=== PATIENT | female | born 1940 | race Caucasian/White ===

== ENCOUNTER 2023-11-09 12:45 | Observation (INO) | payer MEDICARE ==
[~2023-11-09] VITALS: Ht 170.2 cm; Wt 53.3 kg
[2023-11-09] MEDS ORDERED: SODIUM CHLORIDE 0.9% 1000ML 1,000 ML IV STA ×2 (13:05→13:15)
[2023-11-09] MEDS ORDERED: IOPAMIDOL 370 MG/ML 100 ML INFUS..BTL INJ ONE (13:17)
[2023-11-09 15:15] LABS: BASOPHILS # (AUTO) 0.1 (0.0-0.1); EOSINOPHILS # (AUTO) 0.3 (0.0-0.4); EOSINOPHILS % 4.2 % (0.0-6.0); HEMATOCRIT 44.3 % (34.2-44.1); HEMOGLOBIN 13.5 g/dL (12.0-16.0); LYMPHOCYTES # (AUTO) 1.8 (1.0-3.2); LYMPHOCYTES % 28.3 % (18.0-39.1); MEAN CORPUSCULAR HGB CONC 30.5 g/dL (31-35); MONOCYTES # (AUTO) 0.3 (0.2-0.8); MONOCYTES % 4.6 % (4.4-11.3); NEUTROPHILS # (AUTO) 3.9 (2.1-6.9); NEUTROPHILS % 61.7 % (38.7-80.0); PLATELET COUNT 159 x10e3/uL (140-360); RED BLOOD COUNT 4.22 x10e6/uL (3.6-5.1); RED CELL DISTRIBUTION WIDTH 14.1 % (11.7-14.4); WHITE BLOOD COUNT 6.25 x10e3/uL (4.8-10.8)
[2023-11-09 15:32] LABS: ALBUMIN 3.4 g/dL (3.5-5.0); ANION GAP 13.7 mmol/L (8-16); BILIRUBIN,TOTAL 0.5 mg/dL (0.2-1.2); CALCIUM 8.7 mg/dL (8.4-10.2); CREATININE, SERUM 0.77 mg/dL (0.57-1.11); POTASSIUM 3.7 mmol/L (3.5-5.1); TOTAL PROTEIN 6.7 g/dL (6.5-8.1)
[2023-11-09 15:40] LABS: TROPONIN I 0.009 ng/mL (0-0.300)
[2023-11-09] MEDS ORDERED: Morphine 4mg INJECTION 4 MG/ML INJ IV PRN (16:00)
[2023-11-09] MEDS ORDERED: ONDANSETRON HCL INJ 2MG/ML 2ML 2 MG/ML VIAL IV PRN (16:00)
[2023-11-09 19:42] VITALS: PULSE 72; RESP 18; O2SAT 98
[2023-11-09 21:00] VITALS: BP 108/55; PULSE 52; RESP 20; TEMP 97.7; O2SAT 95
[2023-11-09 21:27] VITALS: BP 113/67; PULSE 50; RESP 18; TEMP 97.1; O2SAT 100
[2023-11-09 21:30] VITALS: BP 113/67; PULSE 50; RESP 18; TEMP 97.1; O2SAT 100
[2023-11-09 21:32] VITALS: BP 113/67; PULSE 50; RESP 18; TEMP 97.1; O2SAT 100
[2023-11-09] MEDS: AMOXICILLIN/CLAVULANATE K 875 MG TAB PO SCH (22:58)
[2023-11-09] MEDS: AZITHROMYCIN 250 MG TAB PO SCH (22:59)
[2023-11-10] VITALS: BP 89/54; PULSE 81; RESP 20; TEMP 97.4; O2SAT 96
[2023-11-10 05:48] VITALS: BP 118/79; PULSE 82; RESP 21; TEMP 98.8; O2SAT 96
[2023-11-10 06:20] LABS: BASOPHILS # (AUTO) 0.1 (0.0-0.1); BASOPHILS % 1.2 % (0.0-1.0); EOSINOPHILS # (AUTO) 0.3 (0.0-0.4); EOSINOPHILS % 6.7 % (0.0-6.0); HEMATOCRIT 41.7 % (34.2-44.1); LYMPHOCYTES # (AUTO) 1.7 (1.0-3.2); LYMPHOCYTES % 33.6 % (18.0-39.1); MEAN CORPUSCULAR HEMOGLOBIN 31.6 pg (28-32); MEAN CORPUSCULAR HGB CONC 31.2 g/dL (31-35); MEAN CORPUSCULAR VOLUME 101.5 fL (81-99); MONOCYTES # (AUTO) 0.3 (0.2-0.8); MONOCYTES % 5.9 % (4.4-11.3); NEUTROPHILS # (AUTO) 2.7 (2.1-6.9); NEUTROPHILS % 52.4 % (38.7-80.0); PLATELET COUNT 163 x10e3/uL (140-360); RED BLOOD COUNT 4.11 x10e6/uL (3.6-5.1); RED CELL DISTRIBUTION WIDTH 13.9 % (11.7-14.4); WHITE BLOOD COUNT 5.09 x10e3/uL (4.8-10.8)
[2023-11-10 06:56] LABS: ANION GAP 10.8 mmol/L (8-16); BILIRUBIN,TOTAL 0.5 mg/dL (0.2-1.2); CALCIUM 8.5 mg/dL (8.4-10.2); CREATININE, SERUM 0.74 mg/dL (0.57-1.11); POTASSIUM 4.8 mmol/L (3.5-5.1)
[2023-11-10] MEDS ORDERED: ASCORBIC ACID500 M2 PO (07:18)
[2023-11-10] MEDS ORDERED: ATROVENT HFA12.9 GM INH (07:18)
[2023-11-10] MEDS ORDERED: ATIVAN1 MG PO (07:18)
[2023-11-10] MEDS ORDERED: DOCUSATE SODIU100 MG PO (07:18)
[2023-11-10] MEDS ORDERED: MAGOX 400400 MG PO (07:18)
[2023-11-10] MEDS ORDERED: LEVSIN0.125 MG PO (07:18)
[2023-11-10] MEDS ORDERED: MULTI-VITAMIN1 EACH PO (07:18)
[2023-11-10] MEDS ORDERED: ZINC 50 MG PO (07:18)
[2023-11-10] MEDS ORDERED: ASPIRIN325 MG PO (07:18)
[2023-11-10] MEDS ORDERED: PANTOPRAZOLE SO40 MG PO (07:18)
[2023-11-10] MEDS ORDERED: MIRTAZAPINE7.5 MG PO (07:18)
[2023-11-10] MEDS ORDERED: INCRUSE ELLI62.5 MCG INH (07:18)
[2023-11-10] MEDS ORDERED: BUDESONIDE0.5 MG/2 M NEB (07:18)
[2023-11-10] MEDS ORDERED: LEXAPRO10 MG PO (07:18)
[2023-11-10] MEDS ORDERED: METOPROLOL TART25 MG PO (07:18)
[2023-11-10] MEDS ORDERED: VITAMIN D32400 UNIT/ PO (07:18)
[2023-11-10] MEDS ORDERED: VITAMIN B-121000 MCG PO (07:18)
[2023-11-10] MEDS ORDERED: MELATONIN3 MG PO (07:18)
[2023-11-10] MEDS ORDERED: FOLIC ACID0.4 MG PO (07:18)
[2023-11-10] MEDS ORDERED: FEROSUL325 MG PO (07:18)
[2023-11-10] MEDS ORDERED: TYLENOL EXTRA500 MG PO (07:18)
[2023-11-10] MEDS ORDERED: ONDANSETRON ODT4 MG PO (07:18)
[2023-11-10 07:21] LABS: TROPONIN I 0.018 ng/mL (0-0.300)
[2023-11-10] MEDS ORDERED: PANTOPRAZOLE SOD 40 MG TABEC PO SCH (07:30)
[2023-11-10 07:45] VITALS: PULSE 75; RESP 18; O2SAT 92
[2023-11-10 07:52] VITALS: BP 118/79; PULSE 82; RESP 21; TEMP 98.8; O2SAT 96
[2023-11-10] MEDS: AMOXICILLIN/CLAVULANATE K 875 MG TAB PO SCH (08:18)
[2023-11-10] MEDS: METOPROLOL TARTRATE 25 MG TAB PO SCH ×2 (08:18→18:18)
[2023-11-10] MEDS: AZITHROMYCIN 250 MG TAB PO SCH (08:19)
[2023-11-10 08:42] VITALS: BP 97/68; PULSE 93; RESP 17; TEMP 97.6; O2SAT 96
[2023-11-10] MEDS ORDERED: ESCITALOPRAM OXALATE 10 MG TAB PO SCH (09:00)
[2023-11-10] MEDS ORDERED: FERROUS SULFATE 325 MG TAB PO SCH (09:00)
[2023-11-10] MEDS ORDERED: ASPIRIN 325 MG TAB PO SCH (09:00)
[2023-11-10] MEDS ORDERED: ACETAMINOPHEN 325 MG TAB PO PRN (09:30)
[2023-11-10 16:23] LABS: TROPONIN I 0.015 ng/mL (0-0.300)
[2023-11-10] MEDS ORDERED: ENOXAPARIN SOD INJ 40 MG/0.4 ML SYR SC SCH (17:00)
[2023-11-10 18:18] VITALS: BP 97/68; PULSE 98
[2023-11-10] MEDS ORDERED: MIRTAZAPINE 15 MG TAB PO SCH (21:00)
[2023-11-11] MEDS ORDERED: DOCUSATE SODIUM 100 MG CAP PO SCH (09:00)
[2023-11-11] MEDS ORDERED: SENNOSIDES 8.6 MG TAB PO SCH (09:00)
== END 2023-11-10 19:34 ==
LOC: ER 13:00 → ERHOLD 15:58 → MED/SURG2 20:22
PROVIDERS: ADMIT Internal Medicine; ATTEND Internal Medicine
DX: J18.9 Pneumonia, unspecified organism (principal); K56.7 Ileus, unspecified; I95.9 Hypotension, unspecified; I11.0 Hypertensive heart disease with heart failure; I50.9 Heart failure, unspecified; I25.10 Atherosclerotic heart disease of native coronary artery without angina pectoris; I48.0 Paroxysmal atrial fibrillation; I47.10 Supraventricular tachycardia, unspecified; F41.1 Generalized anxiety disorder; K21.9 Gastro-esophageal reflux disease without esophagitis; I73.9 Peripheral vascular disease, unspecified; J44.9 Chronic obstructive pulmonary disease, unspecified; K44.9 Diaphragmatic hernia without obstruction or gangrene; F33.41 Major depressive disorder, recurrent, in partial remission; L89.159 Pressure ulcer of sacral region, unspecified stage; R53.81 Other malaise; K57.30 Diverticulosis of large intestine without perforation or abscess without bleeding; Z11.52 Encounter for screening for COVID-19; Z85.3 Personal history of malignant neoplasm of breast; Z79.899 Other long term (current) drug therapy; Z79.82 Long term (current) use of aspirin
CPT/HCPCS: 36415 ×2; 74177; 80053 ×2; 82550 ×2; 82948; 83690; 84484 ×2; 85025 ×2; 92526; 92610; 93005; 94799 ×2; 99284; G0378 ×2; J1650; J2543; J7030; Q9967; S0164; U0002

== ENCOUNTER 2024-04-27 13:33 | Inpatient (IN) | payer MEDICARE, OTHER ==
[2024-04-27] VITALS (12 sets, daily range): BP systolic 78–116; BP diastolic 45–94; PULSE 64–118; RESP 17–38; TEMP 97.9–98.6; O2SAT 93–100
[~2024-04-27] VITALS: Ht 170.2 cm; Wt 52.8 kg
[~2024-04-27 13:33] MED LIST: ASCORBIC ACID500 M2 PO; ASPIRIN325 MG PO; ATIVAN1 MG PO; ATROVENT HFA12.9 GM INH; BUDESONIDE0.5 MG/2 M NEB; CEFDINIR300 MG PO; DOCUSATE SODIU100 MG PO; DOXYCYCLINE HY100 MG PO; FEROSUL325 MG PO; FOLIC ACID0.4 MG PO; INCRUSE ELLI62.5 MCG INH; LEVSIN0.125 MG PO; LEXAPRO10 MG PO; MAGOX 400400 MG PO; MELATONIN3 MG PO; METOPROLOL TART25 MG PO; MIRTAZAPINE7.5 MG PO; MULTI-VITAMIN1 EACH PO; ONDANSETRON ODT4 MG PO; PANTOPRAZOLE SO40 MG PO; TYLENOL EXTRA500 MG PO; VITAMIN B-121000 MCG PO; VITAMIN D32400 UNIT/ PO; ZINC 50 MG PO
[2024-04-27] MEDS: ALBUTEROL/IPRATROPIUM 3 ML NEB NEB ONE (14:54)
[2024-04-27 15:18] LABS: BASOPHILS % 0.2 % (0.0-1.0); HEMATOCRIT 42.4 % (34.2-44.1); HEMOGLOBIN 12.7 g/dL (12.0-16.0); LYMPHOCYTES # (AUTO) 0.9 (1.0-3.2); LYMPHOCYTES % 6.3 % (18.0-39.1); MEAN CORPUSCULAR HEMOGLOBIN 33.7 pg (28-32); MEAN CORPUSCULAR VOLUME 112.5 fL (81-99); MONOCYTES # (AUTO) 0.4 (0.2-0.8); MONOCYTES % 2.8 % (4.4-11.3); NEUTROPHILS # (AUTO) 12.2 (2.1-6.9); NEUTROPHILS % 89.7 % (38.7-80.0); PLATELET COUNT 328 x10e3/uL (140-360); RED BLOOD COUNT 3.77 x10e6/uL (3.6-5.1); RED CELL DISTRIBUTION WIDTH 16.8 % (11.7-14.4); WHITE BLOOD COUNT 13.58 x10e3/uL (4.8-10.8)
[2024-04-27 15:35] LABS: INR 1.19; PROTHROMBIN TIME 15.9 seconds (11.9-14.5)
[2024-04-27 15:36] LABS: PARTIAL THROMBOPLASTIN TIME 35.2 seconds (23.8-35.5)
[2024-04-27] MEDS: METHYLPREDNISOLONE SOD SUCC 125 MG/2ML VIAL IV ONE (15:37)
[2024-04-27] MEDS: SODIUM CHLORIDE 0.9% 1000ML 1,000 ML IV SCH ×2 (15:37→21:00)
[2024-04-27 15:42] LABS: ALBUMIN 3.3 g/dL (3.5-5.0); ANION GAP 19.8 mmol/L (8-16); CALCIUM 9.7 mg/dL (8.4-10.2); CREATININE, SERUM 1.18 mg/dL (0.57-1.11); POTASSIUM 4.8 mmol/L (3.5-5.1); TOTAL PROTEIN 6.7 g/dL (6.5-8.1)
[2024-04-27 16:48] LABS: BILIRUBIN,TOTAL 0.5 mg/dL (0.2-1.2)
[2024-04-27 17:19] LABS: BILIRUBIN,URINE MODERATE (NEGATIVE); CLARITY,URINE HAZY (CLEAR); COLOR,URINE AMBER (YELLOW); GLUCOSE, URINE NEGATIVE (NEGATIVE); KETONES,URINE TRACE (NEGATIVE); LEUKOCYTE ESTERASE ,URINE NEGATIVE (NEGATIVE); NITRITE,URINE NEGATIVE (NEGATIVE); PH,URINE 5 (5 - 7); PROTEIN,URINE DIPSTICK 2+ (NEGATIVE); URINE UROBILINOGEN 2 mg/dL (0.2 - 1)
[2024-04-27 17:31] LABS: BACTERIA,URINE MODERATE /HPF; EPITHELIAL CELLS,URINE FEW /LPF; RBC,URINE 0-5 /HPF (0-5); TRANSITIONAL EPI CELLS,URINE FEW; WBC,URINE (MAN) 0-5 /HPF (0-5)
[2024-04-27 17:32] LABS: AMORPHOUS SEDIMENT,URINE MODERATE (FEW); CALCIUM OXALATE CRYSTALS,UR FEW (FEW)
[2024-04-27] MEDS ORDERED: SODIUM CHLORIDE 0.9% 1000ML 1,000 ML IV SCH (17:45)
[2024-04-27] MEDS ORDERED: ONDANSETRON HCL INJ 2MG/ML 2ML 2 MG/ML VIAL IV PRN (18:00)
[2024-04-27 18:32] LABS: TROPONIN I 0.009 ng/mL (0-0.300)
[2024-04-27] MEDS: BUDESONIDE/FORMOTEROL 160/4.5MCG INHALER INH SCH (19:00)
[2024-04-27] MEDS: SODIUM CHLORIDE 0.9% 1000ML 1,000 ML IV ONE ×2 (19:41→20:00)
[2024-04-27] MEDS: SODIUM CHLORIDE 0.9% 500ML 500 ML IV ONE (19:41)
[2024-04-27] MEDS: Vancomycin IV 1 GM in SODIUM CHLORIDE 0.9% 250ML 250 ML IV ONE (20:00)
[2024-04-28] VITALS (42 sets, daily range): BP systolic 70–134; BP diastolic 33–112; PULSE 38–95; RESP 18–35; TEMP 98.3–99.1; O2SAT 81–100
[2024-04-28 03:25] LABS: TROPONIN I 0.021 ng/mL (0-0.300)
[2024-04-28 06:30] LABS: BASOPHILS # (AUTO) 0.1 (0.0-0.1); BASOPHILS % 0.6 % (0.0-1.0); EOSINOPHILS % 0.1 % (0.0-6.0); HEMATOCRIT 26.6 % (34.2-44.1); LYMPHOCYTES # (AUTO) 1.8 (1.0-3.2); LYMPHOCYTES % 17.5 % (18.0-39.1); MEAN CORPUSCULAR HGB CONC 31.2 g/dL (31-35); MONOCYTES # (AUTO) 0.6 (0.2-0.8); MONOCYTES % 5.9 % (4.4-11.3); NEUTROPHILS # (AUTO) 7.7 (2.1-6.9); NEUTROPHILS % 75.5 % (38.7-80.0); PLATELET COUNT 233 x10e3/uL (140-360); RED BLOOD COUNT 2.44 x10e6/uL (3.6-5.1); RED CELL DISTRIBUTION WIDTH 16.7 % (11.7-14.4); WHITE BLOOD COUNT 10.14 x10e3/uL (4.8-10.8)
[2024-04-28 06:34] LABS: HEMOGLOBIN 8.3 g/dL (12.0-16.0)
[2024-04-28 08:32] LABS: ALBUMIN 2.5 g/dL (3.5-5.0); ALBUMIN/GLOBULIN RATIO 1.1 (0.8-2.0); ANION GAP 10.8 mmol/L (8-16); BILIRUBIN,TOTAL 0.5 mg/dL (0.2-1.2); CALCIUM 7.6 mg/dL (8.4-10.2); CREATININE, SERUM 0.71 mg/dL (0.57-1.11); POTASSIUM 3.8 mmol/L (3.5-5.1); TOTAL PROTEIN 4.7 g/dL (6.5-8.1)
[2024-04-28] MEDS: DOCUSATE SODIUM 100 MG CAP PO SCH (08:52)
[2024-04-28] MEDS: PANTOPRAZOLE SOD 40 MG TABEC PO SCH (08:53)
[2024-04-28 10:00] LABS: ABG HCO3 17 mmol/L (22-26); ABG PCO2 29 mmHg (35-45); ABG PH 7.31 (7.35-7.45); ABG PO2 77 mmHg (80-105); ABG TCO2 15
[2024-04-28] MEDS: LORAZEPAM INJ 2 MG/ML VIAL IV ONE (10:14)
[2024-04-28] MEDS: DEXMEDETOMIDINE 400MCG/NS100ML 100 ML IV PRN (10:15)
[2024-04-28 15:02] LABS: TROPONIN I 0.029 ng/mL (0-0.300)
[2024-04-28] MEDS: SODIUM BICARBONATE 8.4% SYRING 50 ML in SODIUM CHLORIDE 0.45% 1,000 ML IV ONE (15:34)
[2024-04-29] VITALS (19 sets, daily range): BP systolic 83–111; BP diastolic 54–78; PULSE 54–82; RESP 14–33; TEMP 97.7–98.5; O2SAT 88–100
[2024-04-29 07:03] LABS: HEMATOCRIT 28.7 % (34.2-44.1); RED BLOOD COUNT 2.64 x10e6/uL (3.6-5.1); WHITE BLOOD COUNT 8.01 x10e3/uL (4.8-10.8)
[2024-04-29 07:04] LABS: BASOPHILS # (AUTO) 0.1 (0.0-0.1); BASOPHILS % 0.7 % (0.0-1.0); EOSINOPHILS % 0.5 % (0.0-6.0); LYMPHOCYTES # (AUTO) 1.4 (1.0-3.2); LYMPHOCYTES % 17.6 % (18.0-39.1); MEAN CORPUSCULAR HEMOGLOBIN 34.1 pg (28-32); MEAN CORPUSCULAR HGB CONC 31.4 g/dL (31-35); MEAN CORPUSCULAR VOLUME 108.7 fL (81-99); MONOCYTES # (AUTO) 0.4 (0.2-0.8); NEUTROPHILS # (AUTO) 6.1 (2.1-6.9); NEUTROPHILS % 75.7 % (38.7-80.0); PLATELET COUNT 227 x10e3/uL (140-360); RED CELL DISTRIBUTION WIDTH 16.3 % (11.7-14.4)
[2024-04-29 07:22] LABS: ALBUMIN 2.5 g/dL (3.5-5.0); ANION GAP 15.1 mmol/L (8-16); BILIRUBIN,TOTAL 0.5 mg/dL (0.2-1.2); CALCIUM 7.8 mg/dL (8.4-10.2); CREATININE, SERUM 0.67 mg/dL (0.57-1.11); POTASSIUM 4.1 mmol/L (3.5-5.1); TOTAL PROTEIN 4.9 g/dL (6.5-8.1)
[2024-04-29] MEDS: SODIUM BICARBONATE 8.4% SYRING 100 ML in DEXTROSE 5% 1,000 ML IV ONE (09:30)
[2024-04-29] MEDS: LORAZEPAM INJ 2 MG/ML VIAL IV ONE (12:30)
[2024-04-29 17:22] LABS: ABG PH 7.34 (7.35-7.45)
[2024-04-29 17:23] LABS: ABG HCO3 19 mmol/L (22-26); ABG PCO2 35 mmHg (35-45); ABG PO2 55 mmHg (80-105); ABG TCO2 20
[2024-04-29] MEDS: ATROPINE SULFATE 0.1 MG/ML 10ML SYR ONE (20:46)
[2024-04-29] MEDS: LORAZEPAM INJ 2 MG/ML VIAL ONE (20:46)
[2024-04-30] VITALS (27 sets, daily range): BP systolic 76–138; BP diastolic 32–110; PULSE 51–170; RESP 13–44; TEMP 97.8–99.3; O2SAT 93–100
[2024-04-30 07:24] LABS: BASOPHILS # (AUTO) 0.1 (0.0-0.1); BASOPHILS % 0.6 % (0.0-1.0); EOSINOPHILS # (AUTO) 0.2 (0.0-0.4); EOSINOPHILS % 1.7 % (0.0-6.0); HEMATOCRIT 32.9 % (34.2-44.1); LYMPHOCYTES % 19.8 % (18.0-39.1); MEAN CORPUSCULAR HEMOGLOBIN 32.9 pg (28-32); MEAN CORPUSCULAR HGB CONC 30.4 g/dL (31-35); MEAN CORPUSCULAR VOLUME 108.2 fL (81-99); MONOCYTES # (AUTO) 0.5 (0.2-0.8); NEUTROPHILS # (AUTO) 7.2 (2.1-6.9); NEUTROPHILS % 72.5 % (38.7-80.0); PLATELET COUNT 283 x10e3/uL (140-360); RED BLOOD COUNT 3.04 x10e6/uL (3.6-5.1); RED CELL DISTRIBUTION WIDTH 15.9 % (11.7-14.4); WHITE BLOOD COUNT 9.94 x10e3/uL (4.8-10.8)
[2024-04-30 07:53] LABS: ALBUMIN 2.7 g/dL (3.5-5.0); ANION GAP 11.6 mmol/L (8-16); BILIRUBIN,TOTAL 0.5 mg/dL (0.2-1.2); CALCIUM 8.4 mg/dL (8.4-10.2); CREATININE, SERUM 0.66 mg/dL (0.57-1.11); POTASSIUM 3.6 mmol/L (3.5-5.1); TOTAL PROTEIN 5.3 g/dL (6.5-8.1)
[2024-04-30] MEDS: ALBUTEROL/IPRATROPIUM 3 ML NEB NEB PRN (08:08)
[2024-04-30] MEDS: MEGACE 400 MG / 10 ML CUP PO SCH (08:08)
[2024-04-30] MEDS: ACETAMINOPHEN 325 MG TAB PO PRN (08:08)
[2024-04-30] MEDS: HALOPERIDOL LACTATE 5 MG/ML VIAL IM PRN (12:53)
[2024-04-30] MEDS: LORAZEPAM INJ 2 MG/ML VIAL IV ONE (16:57)
[2024-04-30] MEDS ORDERED: METOPROLOL TARTRATE INJ 1 MG/ML VIAL IV PRN (18:45)
[2024-04-30] MEDS: METOPROLOL TARTRATE 25 MG TAB PO SCH (18:54)
[2024-05-01] VITALS (42 sets, daily range): BP systolic 81–162; BP diastolic 50–138; PULSE 60–93; RESP 13–44; TEMP 97.3–99.5; O2SAT 88–100
[2024-05-01 08:03] LABS: ALBUMIN 2.5 g/dL (3.5-5.0); BILIRUBIN,TOTAL 0.5 mg/dL (0.2-1.2); CALCIUM 8.5 mg/dL (8.4-10.2); CREATININE, SERUM 0.66 mg/dL (0.57-1.11); POTASSIUM 4.2 mmol/L (3.5-5.1); TOTAL PROTEIN 5.1 g/dL (6.5-8.1)
[2024-05-01] MEDS: DEXTROSE 5%/0.45% SOD CHL 1,000 ML IV ONE (08:28)
[2024-05-01 09:23] LABS: ANION GAP 14.2 mmol/L (8-16)
[2024-05-02] VITALS (44 sets, daily range): BP systolic 84–139; BP diastolic 51–117; PULSE 50–138; RESP 14–37; TEMP 98.2–99.3; O2SAT 83–100
[2024-05-03] VITALS (20 sets, daily range): BP systolic 87–159; BP diastolic 52–141; PULSE 40–102; RESP 14–32; TEMP 97.7–99.8; O2SAT 90–100
[2024-05-03] MEDS: LACTATED RINGER'S 1,000 ML INJ ONE (08:39)
[2024-05-03] MEDS ORDERED: ATROPINE SULFATE 0.1 MG/ML 10ML SYR IV PRN (09:45)
[2024-05-04] VITALS (26 sets, daily range): BP systolic 91–131; BP diastolic 52–112; PULSE 25–131; RESP 11–36; TEMP 97.9–98.9; O2SAT 90–100
[2024-05-04 07:04] LABS: BASOPHILS # (AUTO) 0.1 (0.0-0.1); BASOPHILS % 0.7 % (0.0-1.0); EOSINOPHILS # (AUTO) 0.1 (0.0-0.4); EOSINOPHILS % 1.5 % (0.0-6.0); HEMOGLOBIN 8.6 g/dL (12.0-16.0); LYMPHOCYTES # (AUTO) 1.3 (1.0-3.2); LYMPHOCYTES % 15.7 % (18.0-39.1); MEAN CORPUSCULAR HEMOGLOBIN 33.6 pg (28-32); MEAN CORPUSCULAR HGB CONC 30.7 g/dL (31-35); MEAN CORPUSCULAR VOLUME 109.4 fL (81-99); MONOCYTES # (AUTO) 0.5 (0.2-0.8); MONOCYTES % 5.8 % (4.4-11.3); NEUTROPHILS # (AUTO) 6.2 (2.1-6.9); NEUTROPHILS % 75.9 % (38.7-80.0); PLATELET COUNT 216 x10e3/uL (140-360); RED BLOOD COUNT 2.56 x10e6/uL (3.6-5.1); RED CELL DISTRIBUTION WIDTH 16.9 % (11.7-14.4); WHITE BLOOD COUNT 8.14 x10e3/uL (4.8-10.8)
[2024-05-04 08:03] LABS: ALBUMIN 2.5 g/dL (3.5-5.0); ANION GAP 8.1 mmol/L (8-16); BILIRUBIN,TOTAL 0.5 mg/dL (0.2-1.2); CALCIUM 8.3 mg/dL (8.4-10.2); CREATININE, SERUM 0.64 mg/dL (0.57-1.11); POTASSIUM 4.1 mmol/L (3.5-5.1); TOTAL PROTEIN 4.9 g/dL (6.5-8.1)
[2024-05-04] MEDS ORDERED: LIDOCAINE HCL 1% LOCAL INJ 20 ML VIAL ONE (08:35)
[2024-05-04] MEDS ORDERED: SODIUM CHLORIDE 0.9% 500ML 500 ML ONE (08:35)
[2024-05-04] MEDS ORDERED: IOPAMIDOL 370 MG/ML 100 ML INFUS..BTL INJ ONE (08:35)
[2024-05-04] MEDS ORDERED: FENTANYL CITRATE/PF 100MCG/2 ML INJ ONE (09:45)
[2024-05-04] MEDS ORDERED: MIDAZOLAM HCL 2 MG/2 ML VIAL ONE (09:45)
[2024-05-04] MEDS ORDERED: SODIUM CHLORIDE 0.9% 250ML 250 ML ONE (09:46)
[2024-05-04] MEDS: LORAZEPAM INJ 2 MG/ML VIAL IV ONE (17:12)
[2024-05-04] MEDS: ALBUTEROL/IPRATROPIUM 3 ML NEB NEB SCH (19:10)
[2024-05-05] VITALS (32 sets, daily range): BP systolic 94–136; BP diastolic 51–96; PULSE 31–144; RESP 14–48; TEMP 98.5–98.9; O2SAT 82–100
[2024-05-06] VITALS (24 sets, daily range): BP systolic 94–146; BP diastolic 66–128; PULSE 66–116; RESP 18–41; TEMP 97.6–98.6; O2SAT 94–99
[2024-05-07] VITALS (20 sets, daily range): BP systolic 99–129; BP diastolic 69–91; PULSE 72–133; RESP 14–42; TEMP 98–98.7; O2SAT 93–100
[2024-05-07] MEDS: METHYLPREDNISOLONE SOD SUCC 40 MG/ML VIAL 1ML IV ONE (08:56)
[2024-05-07] MEDS: METOPROLOL TARTRATE INJ 1 MG/ML VIAL IV PRN (09:39)
[2024-05-07 09:54] LABS: BASOPHILS % 0.3 % (0.0-1.0); EOSINOPHILS # (AUTO) 0.1 (0.0-0.4); EOSINOPHILS % 0.6 % (0.0-6.0); LYMPHOCYTES # (AUTO) 0.9 (1.0-3.2); LYMPHOCYTES % 7.4 % (18.0-39.1); MEAN CORPUSCULAR VOLUME 109.4 fL (81-99); MONOCYTES # (AUTO) 0.5 (0.2-0.8); MONOCYTES % 4.2 % (4.4-11.3); NEUTROPHILS # (AUTO) 10.8 (2.1-6.9); NEUTROPHILS % 87.2 % (38.7-80.0); PLATELET COUNT 210 x10e3/uL (140-360); RED BLOOD COUNT 2.65 x10e6/uL (3.6-5.1); RED CELL DISTRIBUTION WIDTH 17.6 % (11.7-14.4); WHITE BLOOD COUNT 12.38 x10e3/uL (4.8-10.8)
[2024-05-07 10:17] LABS: ALBUMIN 2.4 g/dL (3.5-5.0); ANION GAP 8.5 mmol/L (8-16); BILIRUBIN,TOTAL 0.5 mg/dL (0.2-1.2); CALCIUM 8.6 mg/dL (8.4-10.2); CREATININE, SERUM 0.62 mg/dL (0.57-1.11); POTASSIUM 3.5 mmol/L (3.5-5.1); TOTAL PROTEIN 5.2 g/dL (6.5-8.1)
[2024-05-07 10:18] LABS: ALBUMIN/GLOBULIN RATIO 0.9 (0.8-2.0)
[2024-05-07 18:07] LABS: ABG HCO3 19 mmol/L (22-26); ABG PCO2 35 mmHg (35-45); ABG PH 7.34 (7.35-7.45); ABG PO2 55 mmHg (80-105); ABG TCO2 20
[2024-05-07 18:07] LABS: ABG HCO3 15 mmol/L (22-26); ABG PCO2 29 mmHg (35-45); ABG PH 7.31 (7.35-7.45); ABG PO2 77 mmHg (80-105); ABG TCO2 15
[2024-05-08] VITALS (18 sets, daily range): BP systolic 105–161; BP diastolic 56–135; PULSE 74–117; RESP 14–34; TEMP 97.9–98.5; O2SAT 88–100
[2024-05-08] MEDS: LORAZEPAM 0.5 MG TAB PO ONE (10:46)
[2024-05-08] MEDS: METOPROLOL SUCCINATE 25 MG TAB XL PO SCH (12:40)
[2024-05-09] VITALS (11 sets, daily range): BP systolic 94–136; BP diastolic 49–87; PULSE 80–154; RESP 17–34; TEMP 98.2–98.6; O2SAT 92–100
[2024-05-09 06:42] LABS: BASOPHILS % 0.1 % (0.0-1.0); EOSINOPHILS % 0.1 % (0.0-6.0); HEMOGLOBIN 8.8 g/dL (12.0-16.0); LYMPHOCYTES # (AUTO) 0.8 (1.0-3.2); LYMPHOCYTES % 8.5 % (18.0-39.1); MEAN CORPUSCULAR HEMOGLOBIN 33.6 pg (28-32); MEAN CORPUSCULAR HGB CONC 30.3 g/dL (31-35); MEAN CORPUSCULAR VOLUME 110.7 fL (81-99); MONOCYTES # (AUTO) 0.5 (0.2-0.8); NEUTROPHILS # (AUTO) 8.3 (2.1-6.9); NEUTROPHILS % 85.9 % (38.7-80.0); PLATELET COUNT 193 x10e3/uL (140-360); RED BLOOD COUNT 2.62 x10e6/uL (3.6-5.1); RED CELL DISTRIBUTION WIDTH 17.4 % (11.7-14.4); WHITE BLOOD COUNT 9.72 x10e3/uL (4.8-10.8)
[2024-05-09 07:06] LABS: ALBUMIN 2.6 g/dL (3.5-5.0); ANION GAP 9.6 mmol/L (8-16); BILIRUBIN,TOTAL 0.5 mg/dL (0.2-1.2); CALCIUM 8.9 mg/dL (8.4-10.2); CREATININE, SERUM 0.66 mg/dL (0.57-1.11); POTASSIUM 3.6 mmol/L (3.5-5.1); TOTAL PROTEIN 5.3 g/dL (6.5-8.1)
[2024-05-09] MEDS: METHYLPREDNISOLONE SOD SUCC 40 MG/ML VIAL 1ML IV ONE (09:57)
[2024-05-10] VITALS (19 sets, daily range): BP systolic 51–174; BP diastolic 29–123; PULSE 72–108; RESP 18–36; TEMP 97–98.4; O2SAT 95–98
[2024-05-10] MEDS ORDERED: ALBUTEROL/IPRATROPIUM 3 ML NEB NEB PRN (00:45)
[2024-05-10] MEDS: METHYLPREDNISOLONE SOD SUCC 40 MG/ML VIAL 1ML IV ONE (00:52)
[2024-05-10] MEDS ORDERED: DEXMEDETOMIDINE 400MCG/NS100ML 100 ML IV PRN (03:00)
[2024-05-10] MEDS: SODIUM CHLORIDE 0.9% 500ML 500 ML ONE (04:00)
[2024-05-10] MEDS: SODIUM CHLORIDE 0.9% 500ML 500 ML IV ONE (04:00)
[2024-05-10] MEDS: NOREPINEPHRINE 8 MG/D5W 250 ML 250 ML IV SCH (04:02)
[2024-05-10] MEDS: NOREPINEPHRINE 8 MG/D5W 250 ML 250 ML ONE (04:03)
[2024-05-10] MEDS ORDERED: SODIUM BICARBONATE 8.4% SYRING 50 ML ONE ×2 (06:55→07:12)
[2024-05-10] MEDS ORDERED: SODIUM BICARBONATE 8.4% SYRING 50 ML in SODIUM CHLORIDE 0.45% 1,000 ML IV ONE (07:00)
[2024-05-10 07:03] LABS: ABG HCO3 11 mmol/L (22-26); ABG PCO2 29 mmHg (35-45); ABG PH 7.19 (7.35-7.45); ABG PO2 125 mmHg (80-105); ABG TCO2 12
[2024-05-10] MEDS ORDERED: ATROPINE SULFATE 0.1 MG/ML 10ML SYR ONE (07:12)
[2024-05-10] MEDS ORDERED: Vancomycin IV 1 GM in SODIUM CHLORIDE 0.9% 250ML 250 ML IV ONE (07:30)
[2024-05-10] MEDS: SODIUM BICARBONATE 8.4% INJ 50 ML SYR IV ONE (08:45)
[2024-05-10 09:32] LABS: BASOPHILS # (AUTO) 0.1 (0.0-0.1); BASOPHILS % 0.3 % (0.0-1.0); HEMOGLOBIN 9.6 g/dL (12.0-16.0); LYMPHOCYTES # (AUTO) 1.9 (1.0-3.2); LYMPHOCYTES % 8.8 % (18.0-39.1); MEAN CORPUSCULAR HEMOGLOBIN 33.9 pg (28-32); MEAN CORPUSCULAR HGB CONC 28.2 g/dL (31-35); MEAN CORPUSCULAR VOLUME 120.1 fL (81-99); MONOCYTES # (AUTO) 0.8 (0.2-0.8); MONOCYTES % 3.8 % (4.4-11.3); NEUTROPHILS % 79.8 % (38.7-80.0); PLATELET COUNT 136 x10e3/uL (140-360); RED BLOOD COUNT 2.83 x10e6/uL (3.6-5.1); RED CELL DISTRIBUTION WIDTH 17.5 % (11.7-14.4); WHITE BLOOD COUNT 21.37 x10e3/uL (4.8-10.8)
[2024-05-10 11:03] LABS: BAND NEUTROPHILS % (MANUAL) 5 %; LYMPHOCYTES % (MANUAL) 4 % (19-48); METAMYELOCYTES % (MANUAL) 3 % (0-0); MONOCYTES % (MANUAL) 2 % (3.4-9.0); MYELOCYTES % (MANUAL) 3 % (0-0); NEUTROPHILS % (MANUAL) 83 % (40-74)
[2024-05-10 11:04] LABS: ANISOCYTOSIS MARKED; HYPOCHROMASIA SLIGHT; PLATELET ESTIMATE SLIGHTLY DECREASED; PLATELET MORPHOLOGY COMMENT NORMAL; POLYCHROMASIA FEW; RBC MORPHOLOGY COMMENT ABNORMAL
[2024-05-10] MEDS ORDERED: SUCCINYLCHOLINE CHLORIDE 20 MG/ML 10ML VIAL ONE (12:22)
== END 2024-05-10 14:10 | disposition expired | DRG 871 ==
LOC: ER 13:45 → ERHOLD 18:04 → ICU 21:30 → MED/SURG3 05-09 16:09 → ICU 05-10 02:11 → IMCU 05-10 11:33
PROVIDERS: ADMIT Internal Medicine; ATTEND Internal Medicine
PROC: 06HY33Z Insertion of Infusion Device into Lower Vein, Percutaneous Approach (ICD-10-PCS; 2024-04-27)
PROC: 3E0333Z Introduction of Anti-inflammatory into Peripheral Vein, Percutaneous Approach (ICD-10-PCS; 2024-04-27)
PROC: 4A133R1 Monitoring of Arterial Saturation, Peripheral, Percutaneous Approach (ICD-10-PCS; 2024-04-28)
PROC: 06HY33Z Insertion of Infusion Device into Lower Vein, Percutaneous Approach (ICD-10-PCS; 2024-05-03)
PROC: 02HV33Z Insertion of Infusion Device into Superior Vena Cava, Percutaneous Approach (ICD-10-PCS; 2024-05-03)
PROC: 0BH17EZ Insertion of Endotracheal Airway into Trachea, Via Natural or Artificial Opening (ICD-10-PCS; principal; 2024-05-10)
PROC: 5A1935Z Respiratory Ventilation, Less than 24 Consecutive Hours (ICD-10-PCS; 2024-05-10)
PROC: 5A2204Z Restoration of Cardiac Rhythm, Single (ICD-10-PCS; 2024-05-10)
PROC: 3E033XZ Introduction of Vasopressor into Peripheral Vein, Percutaneous Approach (ICD-10-PCS; 2024-05-10)
DX: A41.9 Sepsis, unspecified organism (principal); E43 Unspecified severe protein-calorie malnutrition; G93.41 Metabolic encephalopathy; L89.153 Pressure ulcer of sacral region, stage 3; R65.21 Severe sepsis with septic shock; J18.9 Pneumonia, unspecified organism; J44.1 Chronic obstructive pulmonary disease with (acute) exacerbation; N17.9 Acute kidney failure, unspecified; E87.20 Acidosis, unspecified; R64 Cachexia; I50.30 Unspecified diastolic (congestive) heart failure; I47.19 Other supraventricular tachycardia; Z68.1 Body mass index [BMI] 19.9 or less, adult; G30.9 Alzheimer's disease, unspecified; F02.811 Dementia in other diseases classified elsewhere, unspecified severity, with agitation; I46.9 Cardiac arrest, cause unspecified; D63.8 Anemia in other chronic diseases classified elsewhere; I27.21 Secondary pulmonary arterial hypertension; J43.9 Emphysema, unspecified; Z66 Do not resuscitate; E11.9 Type 2 diabetes mellitus without complications; F41.9 Anxiety disorder, unspecified; D53.9 Nutritional anemia, unspecified; E86.0 Dehydration; Z53.8 Procedure and treatment not carried out for other reasons; Z11.52 Encounter for screening for COVID-19; M19.90 Unspecified osteoarthritis, unspecified site; Z79.82 Long term (current) use of aspirin; Z90.710 Acquired absence of both cervix and uterus; Z85.3 Personal history of malignant neoplasm of breast
CPT/HCPCS: 31500; 36415; 36556; 36600; 43752; 51700; 71045; 74230; 74470; 76937; 77001; 80053; 81001; 82550; 82607; 82805; 82948; 83605; 83735; 84443; 84484; 85025; 85610; 85730; 87040; 87086; 92950; 93005; 93306; 94002; 94003; 94640; 94664; 94799; 99252; 99285; C1769; J0330; J0690; J0692; J0696; J1630; J2001; J2060; J2250; J2543; J2919; J7030; J7040; J7050; J7070; Q9967; U0002